=== PATIENT | male | born 1965 | race Caucasian/White ===

== ENCOUNTER 2019-03-25 22:51 | Emergency (ER) | payer MEDICARE, MEDICAID ==
[~2019-03-25] VITALS: Ht 182.9 cm; Wt 83.2 kg
[2019-03-25] MEDS ORDERED: AMOXICILLIN 500 MG CAPSULE PO STA (23:18)
[2019-03-25] MEDS ORDERED: IBUPROFEN 600 MG TABLET PO ONE (23:30)
[2019-03-25] MEDS ORDERED: IBUPROFEN 600 MG TABLET ONE (23:32)
[2019-03-25] MEDS ORDERED: AMOXICILLIN 500 MG CAPSULE ONE (23:32)
--- NOTE | 2019-03-25 23:36 | NUR ---
PT MEDICATED PER MAR. PT DENIES FURTHER NEEDS AT THIS TIME. AWAITING DC PAPERWORK
[2019-03-25 23:43] VITALS: BP 128/74
== END 2019-03-25 23:45 ==
LOC: ED 23:39
DX: K02.9 Dental caries, unspecified (principal)
CPT/HCPCS: 99283